=== PATIENT | male | born 1965 | race Caucasian/White ===

== ENCOUNTER 2016-09-21 09:26 | Day surgery (SDC) | payer BC ==
--- NOTE | ~2016-09-21 | OP ---
Record Of Operation [facility] [address] [place]. [address] NAME: WILLIAN GARCIA : 63 STATUS : [facility]#: [id number] AGE: 51 ADM/REG DATE : 09/21/16 MR#: [id number] REPORT SERV DATE: 09/21/16 DICTATED BY: THANH PRABHAKAR III DATE: 09/21/16 REPORT STATUS : Draft TRANSCRIBED BY: MODL DATE: 09/21/16 DATE OF PROCEDURE: 09/21/2016 PROCEDURE: Cystoscopy, right ureteroscopy with fragmentation of right impacted ureteral calculus, and insertion of double-J stent. PREOPERATIVE DIAGNOSIS: Right ureteral calculus. POSTOPERATIVE DIAGNOSIS: Right ureteral calculus. ANESTHESIA: General. SURGEON: Thanh Prabhakar M.D. PROCEDURE IN DETAIL: Following induction of adequate general anesthesia, the patient was placed in the dorsal lithotomy position, prepped and draped in the sterile fashion. A suture had been left just inside the meatus from the previous procedure. The stent was pulled out through the meatus and a wire placed. I then placed a rigid scope alongside the wire, taking care not to create any bleeding. I could not reach the level of the stone, so a second wire was placed and a nine and a half Yi sheath placed below the level of the stone. I was able to work the flexible ureteral scope to the stone which remained impacted with a lot of reaction. Lasering was quite difficult but finally enough was chipped away so that the stone migrated proximal and actually migrated into the proximal ureter where it was broken up into 3 or 4 fragments. These scattered within the kidney and the ureteroscope was used to fragment and to essentially dust them with high-frequency and low power energy on the laser. The area where the stone was visually impacted was quite tight even after two weeks of stenting and I felt that I did not want to get the basket and stone stuck in this location, so the base of the stones were dusted to passable size. The kidney was examined twice with dye to be as certain as possible. There were no large stone and a double-J stent of 10/19 size inlay [place] was placed in the kidney with a loop in the kidney and a loop in the bladder. There was minimal prostate bleeding. No catheter was left. He tolerated the procedure well. He will come in for 2 to 3 weeks for stent removal. OB/MODL Thanh Prabhakar III, M.D. / [id number] CC: Chidi Shah III, MD
[~2016-09-21 09:26] MED LIST: ADVAIR250 INH; ASAB PO; B COMPLEX-C OR; B12100T PO; CELEBREX1 PO; CYMBALTA60 PO; IMITREX100 MG PO; INDO50 PO; IRON OTC PO; L20 PO; METHOC500B PO; MOBIC15 MG PO; NORCO1 TA2 PO; PAX10 PO; PRILO PO; PRILOSEC OR; PROAIR HFA INH; SINGULAIR1 PO; ZYRTEC ALLGY10 MG PO; [UNRECOGNIZED DRUG - OTHER] OR; [UNRECOGNIZED DRUG - OTHER] PO
[2016-09-21 11:28] LABS: BASOPHILS 0.3 %; BASOPHILS ABSOLUTE 0.03 10/3/uL (0.0-0.16); EOSINOPHILS 1.9 %; EOSINOPHILS ABSOLUTE 0.17 10/3/uL (0.0-0.53); HEMATOCRIT 40.4 % (40.0-51.0); HEMOGLOBIN 13.6 g/dL (13.6-17.8); IMMATURE GRANULOCYTES 0.2 %; IMMATURE GRANULOCYTES ABSOLUTE 0.02 10/3/uL (0.0-0.11); LYMPHOCYTES 19.9 %; LYMPHOCYTES ABSOLUTE 1.78 10/3/uL (0.67-4.30); MEAN CORPUS HGB CONC 33.7 g/dL (32.0-36.0); MEAN CORPUSCULAR HEMOGLOB 30.2 pg (26.0-34.0); MEAN PLATELET VOLUME 9.4 fL (9.2-13.0); MONOCYTES 10.2 %; MONOCYTES ABSOLUTE 0.91 10/3/uL (0.21-1.20); NEUTROPHILS 67.5 %; NEUTROPHILS ABSOLUTE 6.04 10/3/uL (2.02-8.40); PLATELET COUNT 299 10/3/uL (150-400); RBC DISTRIBUTION WIDTH 13.6 % (12.0-16.0)
[2016-09-21 11:29] LABS: MANUAL DIFF NO %; MEAN CORPUSCULAR VOLUME 89.8 fL (80-100)
[2016-09-21 11:39] LABS: BUN (BLOOD UREA NITROGEN) 13 MG/DL (6-23); CALCIUM, SERUM 8.5 MG/DL (8.5-10.4); CHLORIDE, SERUM 108 MMOL/L (96-112); CO2 (CARBON DIOXIDE) 29 MMOL/L (24-34); CREATININE 0.97 MG/DL (0.70-1.30); GFR AFRICAN AMERICAN 104 ML/MIN (>=60); GFR NON AFRICAN AMERICAN 89 ML/MIN (>=60); POTASSIUM, SERUM 4.2 MMOL/L (3.5-5.3); SODIUM, SERUM 141 MMOL/L (135-148)
[2016-09-21 11:40] LABS: GLUCOSE, SERUM 99 MG/DL (60-99)
== END 2016-09-21 16:10 | disposition home or self-care (01) ==
LOC: SDC 09:26
PROVIDERS: Urology
PROC: 0T768DZ Dilation of Right Ureter with Intraluminal Device, Via Natural or Artificial Opening Endoscopic (ICD-10-PCS; 2016-09-21)
PROC: 0T568ZZ Destruction of Right Ureter, Via Natural or Artificial Opening Endoscopic (ICD-10-PCS; principal; 2016-09-21 11:30)
DX: N20.1 Calculus of ureter (principal); E66.01 Morbid (severe) obesity due to excess calories; K21.9 Gastro-esophageal reflux disease without esophagitis; J45.909 Unspecified asthma, uncomplicated; G43.909 Migraine, unspecified, not intractable, without status migrainosus; G47.33 Obstructive sleep apnea (adult) (pediatric); F41.9 Anxiety disorder, unspecified; Z99.81 Dependence on supplemental oxygen; Z79.899 Other long term (current) drug therapy; Z98.890 Other specified postprocedural states; Z90.49 Acquired absence of other specified parts of digestive tract; Z87.442 Personal history of urinary calculi
CPT/HCPCS: 74420; 80048; 85025; C1758; C1769; C1894; C2617; J2250; J2405; J2710; J3010; Q9967